=== PATIENT | female | born 1950 | race Caucasian/White ===

== ENCOUNTER 2018-07-27 23:30 | Inpatient (IN) | payer MEDICARE, MEDICAID ==
[~2018-07-27] VITALS: Ht 165.1 cm; Wt 85.7 kg
[~2018-07-27 23:30] MED LIST: AMLO5TAB9 PO; ASPI-524 PO; CLON0.1T PO
--- NOTE | 2018-07-27 23:40 | NUR ---
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 PT STATES SHE WAS VERY DIAPHORETIC BEFORE ARRIVAL. PT DID NOT RECEIVE ANY MEDICATION EN ROUTE, PT CURRENTLY DENIES ANY PAIN. PT DENIES SOB, N/V/D, HEADACHE, DIZZINESS. PT AAOX4. RESPIRATIONS EVEN AND UNLABORED. SKIN WARM AND INTACT. NO ACUTE DISTRESS NOTED AT THIS TIME. PT PLACED ON CONTINUOUS DETECTIVE PRIVATE EYE, WILL CONTINUE TO MONITOR
--- NOTE | 2018-07-27 23:42 | NUR ---
DR. ESCOBAR AT BEDSIDE FOR EVALUATION
--- NOTE | 2018-07-27 23:50 | NUR ---
PER PT'S REQUEST, ATTEMPTED TO CONTACT PT'S DAUGHTER FOREIGN , NO ANSWER.
--- NOTE | 2018-07-27 23:53 | NUR ---
IV INITIATED LEFT FOREARM 18G. LABS DRAWN FROM SITE. FIRST ASSIST AT BEDSIDE FOR COLLECTION. IV INTACT AND PATENT, PLACED ON SALINE LOCK
[2018-07-27 23:58] LABS: BASOPHILS % (AUTO) 0.9 % (0.0-2.0); EOSINOPHILS % (AUTO) 0.8 % (0.0-6.0); HEMATOCRIT 45 % (33-45); HEMOGLOBIN 15.7 g/dL (11.5-14.8); LYMPHOCYTES # (AUTO) 1.6 /CMM (0.8-4.8); LYMPHOCYTES % (AUTO) 32.9 % (20.0-44.0); MEAN CORPUSCULAR HGB CONC 35 g/dl (31.0-36.0); MEAN CORPUSCULAR VOLUME 87 fL (82-100); MONOCYTES # (AUTO) 0.7 /CMM (0.1-1.30); MONOCYTES % (AUTO) 15.3 % (2.0-12.0); NEUTROPHILS # (AUTO) 2.4 /CMM (1.8-8.9); NEUTROPHILS % (AUTO) 50.1 % (43.0-81.0); PLATELET COUNT (AUTO) 210 /CMM (150-450); RED BLOOD CELL COUNT(AUTO) 5.22 MIL/uL (4.0-5.2); WHITE BLOOD COUNT (AUTO) 4.8 K/uL (4.3-11.0)
[2018-07-28] MEDS ORDERED: DILTIAZEM HCL 50 MG IV IV ONE
[2018-07-28] MEDS ORDERED: DILTIAZEM HCL 25 MG IV ONE (00:01)
[2018-07-28 00:07] LABS: CALCIUM, SERUM 8.5 mg/dL (8.5-10.1); CREATININE 1.2 mg/dL (0.6-1.3); POTASSIUM 3.1 mmol/L (3.5-5.1)
--- NOTE | 2018-07-28 00:22 | NUR ---
RADIOLOGY AT BEDSIDE FOR CXR
--- NOTE | 2018-07-28 01:00 | NUR ---
NOTED HYPOTENSION. MD AWARE. PER VERBAL ORDER, ADMINISTERED 1000ML NS IV X1 NOW. 20G LEFT FOREARM.
[2018-07-28 01:06] LABS: LYMPHOCYTES % (MANUAL) 23 % (16-48); MONOCYTES % (MANUAL) 11 % (0-11.0); NEUTROPHILS % (MANUAL) 66 (42-76)
[2018-07-28] MEDS ORDERED: POTASSIUM CHLORIDE 20 MEQ TAB.PRT.SR PO ONE (01:30)
[2018-07-28] MEDS ORDERED: IV NS 0.9% 1,000 ML BAG IV ONE ×2 (01:30)
[2018-07-28] MEDS ORDERED: CEFTRIAXONE 1GM BAG (ER ONLY) 50 ML IV ONE ×2 (01:30→01:33)
[2018-07-28] MEDS ORDERED: AZITHROMYCIN 500 MG in IV D5W 250 ML IV ONE (01:30)
[2018-07-28] MEDS ORDERED: AZITHROMYCIN 500 MG VIAL ONE (01:33)
--- NOTE | 2018-07-28 01:50 | NUR ---
RADIOLOGY NURSE AT BEDSIDE FOR BLOOD DRAW
[2018-07-28] MEDS ORDERED: LEVALBUTEROL HCL NEB 1.25 MG/0.5 ML VIAL.NEB NEB PRN (02:00)
[2018-07-28] MEDS ORDERED: ZOLPIDEM TARTRATE 5 MG TABLET PO PRN (02:00)
[2018-07-28] MEDS ORDERED: MORPHINE SULFATE INJ 2 MG/ML DISP.SYRIN IV PRN (02:00)
[2018-07-28] MEDS ORDERED: ONDANSETRON HCL/PF 4 MG/2 ML VIAL IVP PRN (02:00)
[2018-07-28] MEDS ORDERED: IPRATROPIUM NEB FS 0.5 MG/2.5 ML AMPUL.NEB NEB PRN (02:00)
[2018-07-28] MEDS ORDERED: ACETAMINOPHEN 325 MG TABLET PO PRN (02:00)
--- NOTE | 2018-07-28 02:15 | NUR ---
GUI RN NOTES RECEIVED PATIENT ON JUANITO AND RECEIVED PATIENTS' REPORT FROM RETURNS PROCESSOR SHAN. PATIENT IS A/A/O X4, ON 2L O2 VIA NC WITH SPO2 OF 96%. PATIENT PLACED ON NON PROFIT JOB TITLES AND IS AFIB WITH HR OF 128. PATIENT IS AMBULATORY AND COMPLAINS OF CHEST PAIN 4/10 ONLY WITH AMBULATION, SUGGESTED TO USE THE CALL LIGHT FOR HELP. FAMILY MEMBERS AT THE BEDSIDE AND ASKED ASKING OF NO ADMINISTRATION OF AMBIEN OR ANY SEDATIVE MEDICATIONS. SKIN ASSESSMENT IS DONE AND NO SKIN PROBLEMS NOTED AT THE ADMISSION. LEFT FOREARM IV LINE IS PATIENT AND INTACT. ALL SAFETY MEASURES ARE IMPLEMENTED, BED IN LOW, LOCKED POSITION, CALL LIGHT IN REACH. WILL CONTINUE TO MONITOR.
--- NOTE | 2018-07-28 02:26 | NUR ---
PT TRANSFERRED PER ACLS PROTOCOL
[2018-07-28] MEDS ORDERED: DIGOXIN 0.25 MG TABLET PO ONE (02:30)
[2018-07-28 02:54] VITALS: BP 128/95
[2018-07-28] MEDS ORDERED: AZITHROMYCIN 500 MG in IV D5W 250 ML IV SCH (03:00)
[2018-07-28] MEDS ORDERED: CEFTRIAXONE 1 G VIAL ONE (04:28)
[2018-07-28] MEDS ORDERED: ENOXAPARIN SODIUM 100 MG/ML DISP.SYRIN SQ ONE (04:30)
[2018-07-28] MEDS: CEFTRIAXONE 1 G in IV D5W 50 ML IV SCH (04:35)
--- NOTE | 2018-07-28 04:40 | NUR ---
RN NOTES CALLED PHARMACY ABOUT 85MG LOVENOX ADMINISTRATION AND HAS BEEN TOLD TO ADMINISTER THE MEDICATION. WILL CONTINUE TO MONITOR.
[2018-07-28 07:20] LABS: BASOPHILS % (AUTO) 0.6 % (0.0-2.0); EOSINOPHILS % (AUTO) 0.8 % (0.0-6.0); HEMATOCRIT 42 % (33-45); HEMOGLOBIN 14.3 g/dL (11.5-14.8); LYMPHOCYTES # (AUTO) 1.8 /CMM (0.8-4.8); LYMPHOCYTES % (AUTO) 37.8 % (20.0-44.0); MEAN CORPUSCULAR HGB CONC 34 g/dl (31.0-36.0); MEAN CORPUSCULAR VOLUME 87 fL (82-100); MONOCYTES # (AUTO) 0.5 /CMM (0.1-1.30); MONOCYTES % (AUTO) 10.6 % (2.0-12.0); NEUTROPHILS # (AUTO) 2.4 /CMM (1.8-8.9); NEUTROPHILS % (AUTO) 50.2 % (43.0-81.0); PLATELET COUNT (AUTO) 199 /CMM (150-450); WHITE BLOOD COUNT (AUTO) 4.7 K/uL (4.3-11.0)
[2018-07-28] MEDS: PANTOPRAZOLE 40 MG TABLET.DR PO SCH (07:30)
--- NOTE | 2018-07-28 07:35 | NUR ---
TELE/RN OPENING NOTE THE PATIENT IS RECEIVED IN BED. AWAKE, ALERT AND ORIENTED X4. RESPIRATION REGULAR AND UNLABORED. PATIENT HAS EPISODES OF SOB AND REMAINS ON OXYGEN 2L/MIN VIA NASAL CANNULA. PATIENT DENIES PAIN AT THIS TIME. LEFT FOREARM G 20 PATENT AND SALINE LOCKED. BED LOW AND LOCKED. SIDE RAILS UP X3. CALL LIGHT WITHIN REACH. WILL CONTINUE TO MONITOR.
[2018-07-28 07:36] LABS: CALCIUM, SERUM 7.9 mg/dL (8.5-10.1); CREATININE 0.8 mg/dL (0.6-1.3); POTASSIUM 3.5 mmol/L (3.5-5.1)
[2018-07-28 07:48] LABS: BILIRUBIN,TOTAL 0.2 mg/dL (0.2-1.0); PHOSPHORUS 3.6 mg/dL (2.5-4.9); TOTAL PROTEIN, SERUM 6.3 g/dL (6.4-8.2)
[2018-07-28 08:00] VITALS: BP 112/71
[2018-07-28] MEDS ORDERED: HYDROMORPHONE INJ 0.5 MG/0.5 ML SYRINGE IV PRN (08:00)
[2018-07-28 08:24] LABS: THYROID STIMULATING HORMONE 1.318 uIU/mL (0.358-3.74)
[2018-07-28] MEDS ORDERED: AMLODIPINE BESYLATE 5 MG TABLET PO SCH (09:00)
[2018-07-28] MEDS ORDERED: ATENOLOL 25 MG TABLET PO SCH (10:00)
[2018-07-28] MEDS: ASPIRIN 81 MG TAB.CHEW PO SCH (10:21)
--- NOTE | 2018-07-28 10:26 | NUR ---
TELE/RN NOTE DR LOPEZ IS MADE AWARE PAING SINUS TACHY HEART RATE INCREASING UP TO 140 AND UNCONTROLLED AFIB. MADE MD AWARE THAT THE PATIENT HAS HOME MEDICATIONS BENICAR 20 MG QD PO AND ATENOLOL 25 MG QD PO. RECEIVED ORDER TO CONTINUES THESE 2 HOME MEDICATIONS. THE ORDERS ARE READ BACK, VERIFIED. NOTED AND CARRIED OUT. PHARMACY DOES NOT HAVE BENICAR. THE PATIENT`S FAMILY WILL PROVIDE THE MEDICATION.
--- NOTE | 2018-07-28 10:29 | NUR ---
TELE/RN NOTE ATENOLOL 25 MG 1 TAB PO IS GIVEN. BLOOD PRESSURE 122/74 AND PULSE 117. WILL CONTINUE TO MONITOR.
[2018-07-28] MEDS ORDERED: ALBUTEROL HALF STRENGTH 1.25 MG/3 ML VIAL.NEB NEB PRN (10:30)
--- NOTE | 2018-07-28 11:03 | NUR ---
TELE/RN NOTE PER PHARMACY REQUEST DIGOXIN LEVEL CHECK ORDER IS OBTAINED FROM DR LOPEZ. NOTED AND CARRIED OUT. LAB IS MADE AWARE.
--- NOTE | 2018-07-28 11:10 | NUR ---
TELE/RN NOTE HEAR RATE DECREASED TO 103.
[2018-07-28 12:00] VITALS: BP 107/61
[2018-07-28] MEDS ORDERED: DIGOXIN INJ 0.5 MG/2 ML AMPUL IV ONE (15:00)
[2018-07-28] MEDS: FUROSEMIDE 40 MG/4 ML VIAL IV SCH (15:00)
[2018-07-28] MEDS: DIGOXIN 0.25 MG TABLET PO SCH (15:13)
--- NOTE | 2018-07-28 15:45 | NUR ---
TELE/RN NOTE NOTED ORDERS OF DIGOXIN 0.5 MG IV PUSH DUE AT 1500 AND DIGOXIN 0.125 MG PO DUE AT 1513. CLARIFIED WITH DR GILMAN (ORDERING MD) AND PER MD DIGOXIN 0.125 MG TO START 07/29/18. THE PATIENT IS MADE AWARE.
[2018-07-28 16:00] VITALS: BP 102/59
[2018-07-28] MEDS ORDERED: ENOXAPARIN SODIUM 80 MG/0.8 ML DISP.SYRIN SQ SCH (17:00)
--- NOTE | 2018-07-28 17:47 | NUR ---
TELE/RN NOTE LASIX 40 MG IV PUSH DUE AT 1500 IS ADMINISTERED LATE PER PATIENT REQUEST. DR GILMAN IS AWARE. BLOOD PRESSURE 115/56 AND PULSE IS 108. WILL CONTINUE TO MONITOR.
[2018-07-28] MEDS: METOPROLOL TARTRATE 25 MG TABLET PO SCH ×2 (18:00→23:43)
--- NOTE | 2018-07-28 18:15 | NUR ---
TELE/RN NOTE THE PATIENT ALERT AND ORIENTED X4. DENIES PAIN AT THIS TIME. RESPIRATION REGULAR AND UNLABORED. EXTERNAL TELE BOX READING IS SINUS TACH 113 WITH AFIB. PATIENT IN NO APPARENT DISTRESS. LFA G 20 PATENT AND SALINE LOCKED. BED LOW AND LOCKED. SIDE RAILS UP X3. CALL LIGHT WITHIN REACH. WILL ENDORSE TO ACTIVITY AID.
[2018-07-28] MEDS ORDERED: METOPROLOL TARTRATE 25 MG TABLET PO PRN (18:30)
[2018-07-28] MEDS: IPRATROPIUM NEB FS 0.5 MG/2.5 ML AMPUL.NEB NEB SCH ×2 (19:30→23:30)
--- NOTE | 2018-07-28 19:30 | NUR ---
TELE/RN NOTE RECEIVED PATIENT ALERT AND ORIENTED X4. DENIES PAIN AT THIS TIME. RESPIRATION REGULAR, SYMMETRICAL AND UNLABORED. EXTERNAL TELE BOX READING IS SINUS TACH 119 WITH AFIB. PATIENT IN NO APPARENT DISTRESS DENIES CHEST PAIN. LFA G 20 PATENT AND SALINE LOCKED. BED LOW AND LOCKED. SIDE RAILS UP X3. CALL LIGHT WITHIN REACH. ALL NEEDS ATTENDED AT THIS TIME
[2018-07-28 20:00] VITALS: BP 111/87
--- NOTE | 2018-07-29 01:30 | NUR ---
MACHINE SETTER SUPERVISOR NOTE REPORT GIVEN TO STEPHANIA ARANA FOR YANDY, TRANSFERRED CARE OVER
[2018-07-29] MEDS: CEFTRIAXONE 1 G in IV D5W 50 ML IV SCH (01:59)
[2018-07-29] MEDS ORDERED: AZITHROMYCIN 500 MG in IV D5W 250 ML IV SCH (03:00)
[2018-07-29] MEDS: IPRATROPIUM NEB FS 0.5 MG/2.5 ML AMPUL.NEB NEB SCH ×3 (03:30→11:30)
[2018-07-29 04:00] VITALS: BP 103/73
[2018-07-29] MEDS: METOPROLOL TARTRATE 25 MG TABLET PO SCH ×2 (05:00→12:00)
--- NOTE | 2018-07-29 07:21 | NUR ---
PAPERHANGER NOTES NO ACUTE CHANGES NOTED DURING THE SHIFT. PROVIDED COMFORT AND SAFETY. ENDORSED TO THE AM NURSE FOR CONTINUITY OF CARE.
--- NOTE | 2018-07-29 07:43 | NUR ---
CIVIL STRUCTURAL DESIGNER NOTES PATIENT RECEIVED RESTING INSIDE ROOM. SLEEPING, EASILY AROUSABLE THROUGH VERBAL AND TACTILE STIMULI. BREATHING EVEN AND UNLABORED. NO ACUTE DISTRESS AT THIS TIME. PATIENT DENIES ANY PAIN OR DISCOMFORT. NO CHANGES IN LOC NOTED AT THIS TIME. PATIENT CONTINUE WITH TELEMETRY, ELECTRON MICROSCOPIST IN PLACE. AFIB 70-80'S. WILL CONTINUE TO MONITOR. BED LOCKED AND IN LOW POSITION.BILATERAL UPPER SIDE RAILS UP AND LOCKED. CALL LIGHT WITHIN EASY REACH
[2018-07-29 08:00] VITALS: BP 106/66
[2018-07-29] MEDS: FUROSEMIDE 40 MG/4 ML VIAL IV SCH (08:17)
[2018-07-29] MEDS: PANTOPRAZOLE 40 MG TABLET.DR PO SCH (08:17)
[2018-07-29] MEDS: ASPIRIN 81 MG TAB.CHEW PO SCH (08:17)
[2018-07-29 08:49] VITALS: BP 102/66
[2018-07-29] MEDS ORDERED: BENICAR 20 MG PO SCH (09:00)
[2018-07-29] MEDS ORDERED: ENOXAPARIN SODIUM 40 MG/0.4 ML DISP.SYRIN SQ SCH (09:00)
--- NOTE | 2018-07-29 10:49 | NUR ---
APPAREL MANUFACTURE INSTRUCTOR NOTES PATIENT NOTED WITH TACHYCARDIA DURING EXERTION/AMBULATION ON HALLWAY. HEART RATE OF 140-150 AFIB. 110'S AT REST. PATIENT DENIES ANY PAIN OR DISCOMFORT DURING EXERTION. PLACED CALL TO DR. GILMAN AND MADE AWARE. GAVE NEW ORDER FOR DIGOXIN 0.25 MG PO X 1 DOSE NOW, THEN HOLD DIGOXIN 0.25 MG PO AT 1300. ORDER NOTED AND CARRIED. OUT. PATIENT AND DAUGHTER, SWETA, AT BEDSIDE MADE AWARE AND VERBALIZED UNDERSTANDING. SWETA (DAUGHTER) LEFT PHONE NUMBER ([phone]) FOR STAFF TO INFORM FOR FURTHER PLANS OR YANDY, WITH PATIENT'S APPROVAL. WILL CONTINUE TO MONITOR Addendum: 07/29/18 at 1056 by BART WHITE RN CLARIFICATION: DR. GILMAN WITH ORDER TO GIVE DIGOXIN 0.25 PO X 1 NOW, THEN HOLD AFTERNOON DOSE OF DIGOXIN 0.125 MG. PATIENT AND DAUGHTER MADE AWARE AND VERBALIZED UNDERSTANDING. WILL CONTINUE TO MONITOR
[2018-07-29] MEDS ORDERED: DIGOXIN 0.25 MG TABLET PO ONE (11:00)
[2018-07-29 12:00] VITALS: BP 95/42
[2018-07-29] MEDS: DIGOXIN 0.25 MG TABLET PO SCH (12:27)
[2018-07-29] MEDS ORDERED: RIVA10TA PO (13:37)
[2018-07-29] MEDS ORDERED: METO25TA6 PO (13:37)
[2018-07-29] MEDS ORDERED: AMOX-430 PO (13:37)
--- NOTE | 2018-07-29 15:08 | NUR ---
CEREAL CHEMIST NOTES PATIENT FOR DISCHARGE TODAY. SEEN AND EXAMINED BY DR. GILMAN AND CLEARED FOR DISCHARGE. DISCHARGE INSTRUCTIONS AND EDUCATION PROVIDED TO PATIENT AND DAUGHTER AND BOTH VERBALIZED UNDERSTANDING. ALL BELONGINGS COMPLETE ON DISCHARGE, NO REPORT OF MISSING INVENTORY. IV REMOVED WITH MINIMAL BLEEDING NOTED. WRITTEN PRESCRIPTIONS PROVIDED TO PATIENT. HOME MEDICATIONS GIVEN TO PATIENT. PATIENT LEFT UNIT AT 1505 IN STABLE CONDITION. AMBULATORY. PATIENT BREATHING EVEN AND UNLABORED. NO ACUTE DISTRESS. NO CHANGES IN LOC. NO NEW SKIN BREAKDOWN NOTED. MD AWARE OF DISCHARGE
== END 2018-07-29 15:00 | disposition home or self-care (01) | DRG 291 ==
LOC: ER 23:32 → TELE1 07-28 01:52
PROVIDERS: ADMIT Internal Medicine; ATTEND Internal Medicine
DX: I11.0 Hypertensive heart disease with heart failure (principal); J18.9 Pneumonia, unspecified organism; I50.33 Acute on chronic diastolic (congestive) heart failure; J44.9 Chronic obstructive pulmonary disease, unspecified; I48.0 Paroxysmal atrial fibrillation; E78.5 Hyperlipidemia, unspecified; F17.210 Nicotine dependence, cigarettes, uncomplicated
CPT/HCPCS: 36415; 71045-TC; 80048-TC; 80053-TC; 80061-TC; 80162-TC; 83605-TC; 83735-TC; 83880; 84100-TC; 84443-TC; 84484-TC; 85025-TC; 85730-TC; 87040-TC; 87081-TC; 93307-TC; G0378; J0456; J0696; J1160; J1650; J1940; J3490; J7030; J7050; J7060